=== PATIENT | female | born 1990 ===

== ENCOUNTER → 2018-06-19 | Outpatient (CLI) | payer BC ==
[2018-06-19 12:56] LABS: Basophils # (auto) 0 uL; Basophils % (auto) 0.5 % (0.0-2.0); Eosinophils # (auto) 0 uL; Eosinophils % (auto) 0.6 % (0.0-7.0); Hemoglobin 14.8 g/dL (12.2-16.2); Lymphocytes # (auto) 1.8 uL; Lymphocytes % (auto) 20.8 % (10.0-50.0); Mean Corpuscular Hemoglobin 27.1 pg (28.0-32.0); Mean Corpuscular Hgb Conc. 33.5 g/dL (32.0-36.0); Monocytes # (auto) 0.4 uL; Monocytes % (auto) 4.6 % (0.0-12.0); Neutrophils # (auto) 6.5 uL; Neutrophils % (auto) 73.5 % (37.0-80.0); Nucleated Red Blood Cells % 0.1 %; Platelet Count (auto) 291 10^3/uL (140-450); Red Blood Cells 5.44 10^6/uL (4.0-5.20); Red Cell Distribution Width 14.3 % (11.8-14.3); White Blood Cell 8.8 10^3/uL (4.4-10.8)
[2018-06-19 12:59] LABS: Urine Bacteria NONE SEEN /hpf (None Seen); Urine Blood TRACE /uL (Negative); Urine Specific Gravity 1.011 (1.001-1.035); Urine WBC <1 /hpf (0 - 5)
[2018-06-19 13:32] LABS: Calcium 8.6 mg/dL (8.5-10.1); Magnesium 2.1 mg/dL (1.6-2.6); Potassium 3.9 mmol/L (3.5-5.1)
[2018-06-19 13:38] LABS: Albumin 3.7 g/dL (3.4-5.0); BUN/Creatinine Ratio 9.9; Bilirubin, Total 0.3 mg/dL (0.2-1.0); Total Protein 7.7 g/dL (6.4-8.2); Uric Acid 3.4 mg/dL (2.6-6.0)
[2018-06-19 13:44] LABS: Free T4 (Free Thyroxine) 1.01 ng/dL (0.89-1.76)
[2018-06-19 13:45] LABS: T3 Total 1.8 ng/mL (0.60-1.81)
[2018-06-19 13:46] LABS: Folate (Folic Acid) 11.98 ng/mL (5.38-24); Free T3 3.71 pg/mL (2.3-4.2)
[2018-06-20 09:47] LABS: Hepatitis B Surface Antibody Positive
[2018-06-20 14:05] LABS: Hepatitis B Surface Antigen Negative (Negative); Hepatitis C Antibody Negative (Negative)
[2018-06-20 14:19] LABS: Hepatitis B Core Total AB Negative
== END | disposition home or self-care (01) ==
LOC: LAB 12:11
DX: Z11.3 Encounter for screening for infections with a predominantly sexual mode of transmission (principal); R53.82 Chronic fatigue, unspecified; Z76.89 Persons encountering health services in other specified circumstances
CPT/HCPCS: 36415; 80053; 80061; 81001; 82306; 82607; 82746; 83036; 83540; 83735; 84439; 84443; 84480; 84481; 84550; 85025; 86308; 86592; 86695; 86696; 86703; 86704; 86706; 86708; 86803; 87086; 87340